=== PATIENT | male | born 1975 | race Caucasian/White ===

== ENCOUNTER 2018-03-25 13:02 | Emergency (ER) | payer BC, MEDICAID ==
[~2018-03-25] VITALS: Ht 180.3 cm; Wt 77.3 kg
[2018-03-25] MEDS ORDERED: naproxen 500mg tablet PO ONE (14:20)
[2018-03-25] MEDS ORDERED: HYDROcodone/acetaminophen 5mg/325mg tablet PO ONE (14:20)
[2018-03-25] MEDS ORDERED: NAPR-56 PO (14:21)
[2018-03-25] MEDS ORDERED: HYDR-569 PO (14:21)
[2018-03-25 15:18] VITALS: BP 120/76
== END 2018-03-25 15:20 | disposition home or self-care (01) ==
LOC: ER 13:04
DX: S62.327A Displaced fracture of shaft of fifth metacarpal bone, left hand, initial encounter for closed fracture (principal); F17.200 Nicotine dependence, unspecified, uncomplicated; Z88.8 Allergy status to other drugs, medicaments and biological substances; W10.9XXA Fall (on) (from) unspecified stairs and steps, initial encounter; Y93.89 Activity, other specified; Y92.89 Other specified places as the place of occurrence of the external cause; Y99.8 Other external cause status
CPT/HCPCS: 29125; 73130; 99284; A6449

== ENCOUNTER 2018-04-05 13:57 | Outpatient (CLI) | payer BC ==
[~2018-04-05 13:57] MED LIST: HYDR-569 PO; NAPR-56 PO
== END 2018-04-05 14:51 | disposition home or self-care (01) ==
LOC: ORTHO 13:57
PROVIDERS: ATTEND Nurse Practitioner Family
DX: S62.357A Nondisplaced fracture of shaft of fifth metacarpal bone, left hand, initial encounter for closed fracture (principal); F17.210 Nicotine dependence, cigarettes, uncomplicated; X58.XXXA Exposure to other specified factors, initial encounter; Y93.89 Activity, other specified; Y92.89 Other specified places as the place of occurrence of the external cause; Y99.8 Other external cause status
CPT/HCPCS: 99213

== ENCOUNTER 2018-04-19 13:39 | Outpatient (CLI) | payer BC | END 2018-04-19 14:27 | disposition home or self-care (01) | LOC: ORTHO 13:39 | PROVIDERS: ATTEND Nurse Practitioner Family | DX: S62.357 Nondisplaced fracture of shaft of fifth metacarpal bone, left hand (principal); F17.200 Nicotine dependence, unspecified, uncomplicated; X58.XXXD Exposure to other specified factors, subsequent encounter | CPT/HCPCS: 73130; 99213 ==

== ENCOUNTER 2018-05-10 13:49 | Outpatient (CLI) | payer BC ==
[2018-05-10 13:47] VITALS: BP 132/85
[~2018-05-10 13:49] MED LIST changes: -NAPR-56 PO
== END 2018-05-10 14:35 | disposition home or self-care (01) ==
LOC: ORTHO 13:49
PROVIDERS: ATTEND Nurse Practitioner Family
DX: S62.356G Nondisplaced fracture of shaft of fifth metacarpal bone, right hand, subsequent encounter for fracture with delayed healing (principal); F17.210 Nicotine dependence, cigarettes, uncomplicated; W10.8XXD Fall (on) (from) other stairs and steps, subsequent encounter
CPT/HCPCS: 73130; 99213; A4590

== ENCOUNTER 2018-05-31 13:39 | Outpatient (CLI) | payer BC ==
[2018-05-31 13:31] VITALS: BP 124/77
== END 2018-05-31 13:58 | disposition home or self-care (01) ==
LOC: ORTHO 13:39
PROVIDERS: ATTEND Nurse Practitioner Family
DX: S62.356G Nondisplaced fracture of shaft of fifth metacarpal bone, right hand, subsequent encounter for fracture with delayed healing (principal); F17.210 Nicotine dependence, cigarettes, uncomplicated; Z88.8 Allergy status to other drugs, medicaments and biological substances; W19.XXXD Unspecified fall, subsequent encounter
CPT/HCPCS: 73130; 99213; A6449

== ENCOUNTER 2018-06-14 14:13 | Outpatient (CLI) | payer BC ==
[2018-06-14 14:14] VITALS: BP 107/64
== END 2018-06-14 15:02 | disposition home or self-care (01) ==
LOC: ORTHO 14:13
PROVIDERS: ATTEND Nurse Practitioner Family
DX: S62.357 Nondisplaced fracture of shaft of fifth metacarpal bone, left hand (principal); F17.210 Nicotine dependence, cigarettes, uncomplicated; Z88.8 Allergy status to other drugs, medicaments and biological substances; W10.8XXD Fall (on) (from) other stairs and steps, subsequent encounter
CPT/HCPCS: 73130

== ENCOUNTER 2018-07-05 13:48 | Outpatient (CLI) | payer BC ==
[2018-07-05 13:36] VITALS: BP 139/97
[~2018-07-05 13:48] MED LIST changes: +HYDR-4383 PO; -HYDR-569 PO
== END 2018-07-05 14:16 | disposition home or self-care (01) ==
LOC: ORTHO 13:48
PROVIDERS: ATTEND Nurse Practitioner Family
DX: S62.357D Nondisplaced fracture of shaft of fifth metacarpal bone, left hand, subsequent encounter for fracture with routine healing (principal); F17.210 Nicotine dependence, cigarettes, uncomplicated; Z88.8 Allergy status to other drugs, medicaments and biological substances; W10.8XXD Fall (on) (from) other stairs and steps, subsequent encounter
CPT/HCPCS: 73130; 99213

== ENCOUNTER 2018-07-16 08:50 | Emergency (ER) | payer BC ==
[~2018-07-16] VITALS: Ht 180.3 cm; Wt 75.0 kg
[2018-07-16] MEDS ORDERED: normal saline 1000ML IV soln IVB ONE (09:30)
[2018-07-16] MEDS ORDERED: ondansetron/PF 4mg/2ml inj IV ONE (09:30)
[2018-07-16] MEDS ORDERED: HYDROmorphone 1 mg/ml syringe IV ONE (09:30)
[2018-07-16 09:40] LABS: BASOPHILS # (AUTO) 0.1 X10'3 (0-0.2); BASOPHILS % (AUTO) 1.6 % (0-1); EOSINOPHILS # (AUTO) 0.2 X10'3 (0-0.9); EOSINOPHILS % (AUTO) 3.4 % (0-6); HEMATOCRIT 47.7 % (42.0-52.0); HEMOGLOBIN 16.4 g/dl (14.0-17.9); LYMPHOCYTES # (AUTO) 1.6 X10'3 (1.1-4.8); LYMPHOCYTES % (AUTO) 33.2 % (21-51); MEAN CORPUSCULAR HEMOGLOBIN 33.6 PG (27.0-31.0); MEAN CORPUSCULAR HGB CONC 34.5 % (33.0-36.5); MEAN CORPUSCULAR VOLUME 97.5 FL (78-98); MEAN PLATELET VOLUME 9.2 FL (7.4-10.4); MONOCYTES # (AUTO) 0.6 X10'3 (0-0.9); MONOCYTES % (AUTO) 11.4 % (2-12); NEUTROPHILS # (AUTO) 2.5 X10'3 (1.8-7.7); NEUTROPHILS % (AUTO) 50.4 % (42-75); PLATELET COUNT 152 X10'3 (140-440); RED BLOOD COUNT 4.89 X10'6 (4.70-6.10); RED CELL DISTRIBUTION WIDTH 13.4 % (11.5-14.5); WHITE BLOOD COUNT 4.9 X10'3 (4.5-11.0)
[2018-07-16 09:51] LABS: INR 1.1 INR; PROTHROMBIN TIME 11.6 SECONDS (9.0-12.0)
[2018-07-16 09:53] LABS: ALANINE AMINOTRANSFERASE 150 U/L (12-78); ALBUMIN 3.5 G/DL (3.4-5.0); ALBUMIN/GLOBULIN RATIO 0.7 (1.1-1.5); ALKALINE PHOSPHATASE 111 IU/L (46-116); ANION GAP 11 (8-16); ASPARTATE AMINO TRANSFERASE 146 U/L (10-37); BILIRUBIN,TOTAL 0.4 MG/DL (0.1-1.0); BLOOD UREA NITROGEN 8 MG/DL (7-18); BUN/CREATININE RATIO 9.4 (5.4-32.0); CALCIUM 8.1 MG/DL (8.5-10.1); CHLORIDE 105 MMOL/L (99-107); CREATININE 0.85 MG/DL (0.60-1.10); GLUCOSE 105 MG/DL (70-104); LIPASE 234 U/L (73-393); POTASSIUM 3.9 MMOL/L (3.5-5.1); SODIUM 139 MMOL/L (135-145); TOTAL CARBON DIOXIDE 22.7 MMOL/L (24-32); TOTAL PROTEIN 8.2 G/DL (6.4-8.2); eGFR > 90 ML/MIN
[2018-07-16] MEDS ORDERED: fentaNYL/PF 50MCG/1 ML 2ML syringe IV ONE (11:00)
[2018-07-16] MEDS ORDERED: ketorolac trometh. 30mg/ml inj. IV ONE (11:00)
[2018-07-16] MEDS ORDERED: CIPR-259 PO (11:02)
[2018-07-16] MEDS ORDERED: NAPR-56 PO (11:02)
[2018-07-16] MEDS ORDERED: METR250T PO (11:02)
[2018-07-16] MEDS ORDERED: TRAM50TA2 PO (11:02)
[2018-07-16 11:25] LABS: CLARITY,URINE CLEAR (Clear); COLOR,URINE YELLOW (Yellow); GLUCOSE, URINE NEGATIVE (Neg); KETONES,URINE NEGATIVE (Neg); LEUKOCYTE ESTERASE ,URINE NEGATIVE (Neg); NITRITES, URINE NEGATIVE (Neg); OCCULT BLOOD,URINE NEGATIVE (Neg); PH,URINE 5.5 (4.8-8.0); PROTEIN,URINE NEGATIVE (Neg); UROBILINOGEN,URINE 0.2 E.U/dL (0.2-1.0)
[2018-07-16 11:29] LABS: UA COLLECTION TYPE CLN CATCH MIDSTREAM
[2018-07-16 11:32] VITALS: BP 127/81
== END 2018-07-16 11:30 | disposition home or self-care (01) ==
LOC: ER 08:50
DX: K52.9 Noninfective gastroenteritis and colitis, unspecified (principal); R74.0 Nonspecific elevation of levels of transaminase and lactic acid dehydrogenase [LDH]; R10.31 Right lower quadrant pain; Z98.890 Other specified postprocedural states; Z86.19 Personal history of other infectious and parasitic diseases; Z88.8 Allergy status to other drugs, medicaments and biological substances; Z88.6 Allergy status to analgesic agent
CPT/HCPCS: 36415; 71045; 74176; 76700; 80053; 81003; 83690; 85025; 85610; 96361; 96374; 96375; 99285; J1170; J1885; J2405; J3010

== ENCOUNTER 2018-07-26 13:38 | Outpatient (CLI) | payer BC ==
[~2018-07-26 13:38] MED LIST changes: +CIPR-259 PO; +METR250T PO; +NAPR-56 PO; +TRAM50TA2 PO
[2018-07-26 13:40] VITALS: BP 106/74
== END 2018-07-26 13:47 | disposition home or self-care (01) ==
LOC: ORTHO 13:38
PROVIDERS: ATTEND Nurse Practitioner Family
DX: S62.327G Displaced fracture of shaft of fifth metacarpal bone, left hand, subsequent encounter for fracture with delayed healing (principal); F17.210 Nicotine dependence, cigarettes, uncomplicated; K74.60 Unspecified cirrhosis of liver; X58.XXXD Exposure to other specified factors, subsequent encounter
CPT/HCPCS: 73130; 99213

== ENCOUNTER 2019-09-03 17:17 | Emergency (ER) | payer BC ==
[~2019-09-03] VITALS: Ht 180.3 cm; Wt 72.7 kg
[~2019-09-03 17:17] MED LIST changes: -CIPR-259 PO; +LIDOcaine 1% W/epiNEPHrine 1:100,000 20ml vial ONE; -METR250T PO; -NAPR-56 PO; +PANT-47 PO; -TRAM50TA2 PO
[2019-09-03 17:37] VITALS: BP 121/81
[2019-09-03] MEDS ORDERED: HYDROcodone/acetaminophen 10/325mg tab PO ONE (19:10)
[2019-09-03] MEDS ORDERED: ondansetron 4mg rapidly disintigrating tab PO ONE (19:10)
[2019-09-03] MEDS ORDERED: piperacillin/tazo 3.375gm/50ml 50 ML IV ONE (19:30)
[2019-09-03 20:13] LABS: BASOPHILS # (AUTO) 0.1 X10'3 (0-0.2); BASOPHILS % (AUTO) 0.8 % (0-1); EOSINOPHILS # (AUTO) 0.1 X10'3 (0-0.9); EOSINOPHILS % (AUTO) 1.9 % (0-6); HEMATOCRIT 45.4 % (42.0-52.0); LYMPHOCYTES # (AUTO) 1.8 X10'3 (1.1-4.8); LYMPHOCYTES % (AUTO) 24.4 % (21-51); MEAN CORPUSCULAR HEMOGLOBIN 33.4 PG (27.0-31.0); MEAN CORPUSCULAR HGB CONC 35.3 g/dL (33.0-36.5); MEAN CORPUSCULAR VOLUME 94.6 FL (78-98); MEAN PLATELET VOLUME 8.7 FL (7.4-10.4); MONOCYTES # (AUTO) 1.2 X10'3 (0-0.9); MONOCYTES % (AUTO) 15.4 % (2-12); NEUTROPHILS # (AUTO) 4.3 X10'3 (1.8-7.7); NEUTROPHILS % (AUTO) 57.5 % (42-75); PLATELET COUNT 189 X10'3 (140-440); RED CELL DISTRIBUTION WIDTH 13.2 % (11.5-14.5); WHITE BLOOD COUNT 7.5 X10'3 (4.5-11.0)
[2019-09-03] MEDS ORDERED: BACDS PO (20:19)
[2019-09-03] MEDS ORDERED: AMOX-422 PO (20:19)
[2019-09-03] MEDS ORDERED: IBUP-1984 PO (20:19)
[2019-09-03] MEDS ORDERED: HYDR-4383 PO (20:19)
[2019-09-03 20:20] LABS: ALANINE AMINOTRANSFERASE 84 U/L (12-78); ALBUMIN 3.4 G/DL (3.4-5.0); ALBUMIN/GLOBULIN RATIO 0.6 (1.1-1.5); ALKALINE PHOSPHATASE 107 IU/L (46-116); ANION GAP 8 (8-16); ASPARTATE AMINO TRANSFERASE 66 U/L (10-37); BILIRUBIN,TOTAL 0.8 MG/DL (0.1-1.0); BLOOD UREA NITROGEN 16 MG/DL (7-18); BUN/CREATININE RATIO 15.5 (5.4-32.0); CALCIUM 8.9 MG/DL (8.5-10.1); CHLORIDE 102 MMOL/L (99-107); CREATININE 1.03 MG/DL (0.60-1.10); GLUCOSE 109 MG/DL (70-104); POTASSIUM 4.6 MMOL/L (3.5-5.1); SODIUM 134 MMOL/L (135-145); TOTAL CARBON DIOXIDE 23.6 MMOL/L (24-32); TOTAL PROTEIN 8.7 G/DL (6.4-8.2); eGFR 79 ML/MIN
[2019-09-03 21:04] LABS: PLATELET ESTIMATE NORMAL; TOTAL CELLS COUNTED 100
== END 2019-09-03 20:49 | disposition home or self-care (01) ==
LOC: ER 17:18
DX: M70.21 Olecranon bursitis, right elbow (principal); F10.99 Alcohol use, unspecified with unspecified alcohol-induced disorder; Z86.19 Personal history of other infectious and parasitic diseases; Z98.890 Other specified postprocedural states; Z88.8 Allergy status to other drugs, medicaments and biological substances; Z79.899 Other long term (current) drug therapy; W22.01XA Walked into wall, initial encounter; Y93.89 Activity, other specified; Y92.89 Other specified places as the place of occurrence of the external cause; Y99.8 Other external cause status; Y90.9 Presence of alcohol in blood, level not specified
CPT/HCPCS: 73080; 80053; 85025; 87070; 99283; 99284

== ENCOUNTER 2020-08-16 17:07 | Emergency (ER) | payer BC, MEDICAID ==
[~2020-08-16] VITALS: Ht 180.3 cm; Wt 70.4 kg
[~2020-08-16 17:07] MED LIST changes: -LIDOcaine 1% W/epiNEPHrine 1:100,000 20ml vial ONE
[2020-08-16 17:09] VITALS: BP 132/78
[2020-08-16] MEDS ORDERED: CLOT30CR24 TOP (17:37)
== END 2020-08-16 17:41 | disposition home or self-care (01) ==
LOC: ER 17:08
DX: B35.6 Tinea cruris (principal); F17.200 Nicotine dependence, unspecified, uncomplicated; Z86.19 Personal history of other infectious and parasitic diseases; Z98.890 Other specified postprocedural states; Z72.89 Other problems related to lifestyle; Z88.8 Allergy status to other drugs, medicaments and biological substances; Z79.2 Long term (current) use of antibiotics; Z79.899 Other long term (current) drug therapy
CPT/HCPCS: 99282; 99283

== ENCOUNTER 2020-09-12 02:44 | Emergency (ER) | payer MEDICAID ==
[~2020-09-12] VITALS: Ht 180.3 cm; Wt 75.0 kg
[~2020-09-12 02:44] MED LIST changes: +CLOT30CR24 TOP
[2020-09-12] MEDS ORDERED: NO HOME MEDS (03:07)
[2020-09-12] MEDS ORDERED: mag hydrox/Alum hydrox/simeth 30ml oral suspension PO ONE (03:15)
[2020-09-12] MEDS ORDERED: sucralfate 1gm/10ml UD suspension PO SCH (03:15)
[2020-09-12] MEDS ORDERED: sucralfate 1gm/10ml UD suspension PO ONE (03:15)
[2020-09-12] MEDS ORDERED: aspirin 81mg tab.chew PO ONE (03:15)
[2020-09-12] MEDS ORDERED: LIDOcaine Viscous 15ml cup MM PRN (03:15)
[2020-09-12 03:52] LABS: ALANINE AMINOTRANSFERASE 113 U/L (12-78); ALBUMIN 3.6 G/DL (3.4-5.0); ALBUMIN/GLOBULIN RATIO 0.8 (1.1-1.5); ALKALINE PHOSPHATASE 89 IU/L (46-116); ANION GAP 8 (8-16); ASPARTATE AMINO TRANSFERASE 70 U/L (10-37); BILIRUBIN,TOTAL 0.5 MG/DL (0.1-1.0); BLOOD UREA NITROGEN 13 MG/DL (7-18); BUN/CREATININE RATIO 13.7 (5.4-32.0); CALCIUM 8.7 MG/DL (8.5-10.1); CHLORIDE 103 MMOL/L (99-107); CREATININE 0.95 MG/DL (0.60-1.10); GLUCOSE 115 MG/DL (70-104); POTASSIUM 3.5 MMOL/L (3.5-5.1); SODIUM 136 MMOL/L (135-145); TOTAL CARBON DIOXIDE 24.8 MMOL/L (24-32); TOTAL PROTEIN 7.9 G/DL (6.4-8.2); eGFR 87 ML/MIN
[2020-09-12] MEDS ORDERED: acetaminophen 325mg tablet PO STA (03:53)
--- NOTE | 2020-09-12 03:54 | NUR ---
He is still having pain. Informed MD, placed order for tylenol.
[2020-09-12 04:00] LABS: BASOPHILS % (AUTO) 0.8 % (0-1); EOSINOPHILS # (AUTO) 0.2 X10'3 (0-0.9); EOSINOPHILS % (AUTO) 3.3 % (0-6); HEMATOCRIT 43.4 % (42.0-52.0); HEMOGLOBIN 14.9 g/dl (14.0-17.9); LYMPHOCYTES # (AUTO) 1.1 X10'3 (1.1-4.8); LYMPHOCYTES % (AUTO) 21.7 % (21-51); MAGNESIUM 2.1 MG/DL (1.5-2.4); MEAN CORPUSCULAR HEMOGLOBIN 31.7 PG (27.0-31.0); MEAN CORPUSCULAR HGB CONC 34.3 g/dL (33.0-36.5); MEAN CORPUSCULAR VOLUME 92.2 FL (78-98); MEAN PLATELET VOLUME 9.5 FL (7.4-10.4); MONOCYTES # (AUTO) 0.5 X10'3 (0-0.9); MONOCYTES % (AUTO) 9.5 % (2-12); NEUTROPHILS # (AUTO) 3.3 X10'3 (1.8-7.7); NEUTROPHILS % (AUTO) 64.7 % (42-75); PLATELET COUNT 120 X10'3 (140-440); RED BLOOD COUNT 4.71 X10'6 (4.70-6.10); RED CELL DISTRIBUTION WIDTH 12.9 % (11.5-14.5); WHITE BLOOD COUNT 5.1 X10'3 (4.5-11.0)
--- NOTE | 2020-09-12 04:01 | NUR ---
warm pack to his chest.
[2020-09-12] MEDS ORDERED: pantoprazole 40 MG vial IV ONE (04:10)
[2020-09-12] MEDS ORDERED: famotidine/PF 10 mg/ml inj IV ONE (04:10)
[2020-09-12] MEDS ORDERED: OMEP20CA15 PO (04:26)
[2020-09-12 04:43] VITALS: BP 119/77
--- NOTE | 2020-09-12 05:03 | NUR ---
called a taxi for the pt as he has no ride.
== END 2020-09-12 04:45 | disposition home or self-care (01) ==
LOC: ER 02:44
DX: R07.89 Other chest pain (principal); Z86.19 Personal history of other infectious and parasitic diseases; Z88.8 Allergy status to other drugs, medicaments and biological substances; Z79.899 Other long term (current) drug therapy; Z72.89 Other problems related to lifestyle
CPT/HCPCS: 36415; 71045; 80053; 83735; 83880; 84484; 85025; 93005; 96374; 96375; 99285; C9113; J3490